=== PATIENT | female | born 1990 ===

== ENCOUNTER 2021-05-12 20:48 | Emergency (ER) | payer OTHER ==
[2021-05-12 23:37] LABS: BILIRUBIN NEGATIVE (NEGATIVE); BLOOD NEGATIVE Ery/uL (NEGATIVE); CLARITY CLEAR (CLEAR); COLOR YELLOW (YELLOW); GLUCOSE (U) NORMAL (NORMAL); LEUKOCYTES NEGATIVE Leu/uL (NEGATIVE); NITRITE NEGATIVE (NEGATIVE); PROTEIN NEGATIVE (NEGATIVE); UROBILINOGEN 0.2 mg/dL (0.2-1.0)
== END 2021-05-13 02:00 | disposition home or self-care (01) ==
LOC: FER 20:48
PROVIDERS: Emergency Medicine
DX: R55 Syncope and collapse (principal); R10.13 Epigastric pain; K21.9 Gastro-esophageal reflux disease without esophagitis; Z79.899 Other long term (current) drug therapy
CPT/HCPCS: 81003; 99284